=== PATIENT | male | born 1990 | race Caucasian/White ===

== ENCOUNTER 2022-07-16 19:49 | Emergency (ER) | payer OTHER, MEDICARE ==
[2022-07-16 19:59] VITALS: RESP 16; TEMP 98.8
[2022-07-16] MEDS ORDERED: SODIUM CHLORIDE 0.9% 2,000 ML IV STA (20:03)
[2022-07-16] MEDS ORDERED: FAMOTIDINE 20 MG/2 ML VIAL IV STA (20:04)
--- NOTE | 2022-07-16 20:54 | ED ---
General Adult HPI - General Chief complaint: Abdominal Pain Stated complaint: Abdominal pain Time Seen by Provider: 07/16/22 19:52 Source: patient, EMS, RN notes reviewed Mode of arrival: EMS Limitations: no limitations - History of Present Illness Initial comments: 31-year-old male presents emergency from via EMS from [place] for evaluation of nausea vomiting abdominal pain. Patient states been getting sick for last 3-4 days. He states started after started yesterday on clindamycin after dental procedure. Patient is currently in rehab for opiate abuse states that he was abusing fentanyl. Patient is currently on Subutex. Patient states does not feel like he is withdrawing does complain of epigastric discomfort, diarrhea no reports of fever. Patient's has been receiving Tigan with no relief of symptoms he states he has ALLERGY to Reglan and Compazine. - Related Data Home Medications Medication Instructions Recorded Confirmed Acetaminophen Tab [Tylenol] 650 mg PO Q4H PRN 07/16/22 07/16/22 Calcium/Magnesium/Zinc/Vitamin D 1 tab PO TID PRN 07/16/22 07/16/22 334/134/5mg Chlorpheniramine Maleate 4 mg PO Q4H PRN 07/16/22 07/16/22 [Chlor-Trimeton] Clindamycin [Cleocin] 150 mg PO TID 07/16/22 07/16/22 Hyoscyamine Sulfate [Levsin] 0.125 mg PO QID PRN 07/16/22 07/16/22 Ibuprofen [Motrin Ib] 600 mg PO Q6H PRN 07/16/22 07/16/22 Loperamide HCl [Imodium A-D] 4 mg PO QID PRN 07/16/22 07/16/22 Multivitamins, Thera [Multivitamin 1 tab PO DAILY 07/16/22 07/16/22 (formulary)] Thiamine [Vitamin B-1] 100 mg PO DAILY 07/16/22 07/16/22 Tigan 200mg/2ml Injection 200 mg IM Q6H PRN 07/16/22 07/16/22 buprenorphine HCL [Subutex] 2 - 4 mg SUBLINGUAL DAILY 07/16/22 07/16/22 buprenorphine HCL [Subutex] See Taper SUBLINGUAL DIRECTED 07/16/22 07/16/22 cloNIDine HCL [Catapres] 0.1 mg PO Q4H PRN 07/16/22 07/16/22 ondansetron HCL [Zofran] 8 mg PO Q6H PRN 07/16/22 07/16/22 traZODone HCL [Desyrel] 50 - 150 mg PO HS 07/16/22 07/16/22 Allergies Allergy/AdvReac Type Severity Reaction Status Date / Time prochlorperazine Allergy Itching Verified 07/16/22 21:28 [From Compazine] droperidol AdvReac Unknown Verified 07/16/22 21:43 metoclopramide [From Reglan] AdvReac Unknown Verified 07/16/22 21:28 Review of Systems ROS Statement: Those systems with pertinent positive or pertinent negative responses have been documented in the HPI. ROS Other: All systems not noted in ROS Statement are negative. Past Medical History Additional Past Medical History / Comment(s): depression History of Any Multi-Drug Resistant Organisms: None Reported Past Surgical History: Orthopedic Surgery Additional Past Surgical History / Comment(s): x5v colostiotomas, Past Psychological History: Depression Smoking Status: Current every day smoker Past Alcohol Use History: None Reported Past Drug Use History: Heroin, IV Drug Use General Exam Limitations: no limitations General appearance: alert, in no apparent distress Head exam: Present: atraumatic, normocephalic, normal inspection Eye exam: Present: normal appearance, PERRL, EOMI. Absent: scleral icterus, conjunctival injection, periorbital swelling ENT exam: Present: normal exam, normal oropharynx, mucous membranes moist Neck exam: Present: normal inspection, full ROM. Absent: tenderness, meningismus, lymphadenopathy Respiratory exam: Present: normal lung sounds bilaterally. Absent: respiratory distress, wheezes, rales, rhonchi, stridor Cardiovascular Exam: Present: regular rate, normal rhythm, normal heart sounds. Absent: systolic murmur, diastolic murmur, rubs, gallop, clicks GI/Abdominal exam: Present: soft, tenderness (Minimal epigastric), normal bowel sounds. Absent: distended, guarding, rebound, rigid Back exam: Absent: CVA tenderness (R), CVA tenderness (L) Neurological exam: Present: alert Skin exam: Present: warm, dry, intact, normal color. Absent: rash Course Vital Signs 07/16/22 07/16/22 07/16/22 19:50 22:02 22:45 Temperature 98.8 F Pulse Rate 65 68 64 Respiratory 16 16 16 Rate Blood Pressure 119/70 118/67 112/64 O2 Sat by Pulse 100 100 100 Oximetry - Reevaluation(s) Reevaluation #1: 07/16/22 21:44 Patient was screaming at staff demanding further medications. I did go back in the room patient is demanding opiate medications I did have a long discussion with the patient that he is currently at rehab for abuse of fentanyl and opiates. Patient is having opiate withdrawal type symptoms, possible reaction from clindamycin. Patient reports that he had symptoms from the droperidol he claims he has ALLERGIES to Reglan and Compazine patient states I can and Zofran have not been helping him patient was given a dose of Zofran IV at this point as he is only been receiving oral. Patient then and demanding benzodiazepines in which the patient requested Ativan and Librium Medical Decision Making - Medical Decision Making 32-year-old male presented for nausea vomiting. Patient is well-hydrated labs are unremarkable. This is most likely from opiate withdrawal, possible medication reaction from clindamycin. Patient will be discharged in stable condition return parameters discussed. - Lab Data Result diagrams: 07/16/22 20:30 07/16/22 20:30 Lab Results 07/16/22 07/16/22 07/16/22 Range/Units 20:30 20:30 21:45 WBC 4.9 (3.8-10.6) k/uL RBC 5.21 (4.30-5.90) m/uL Hgb 15.3 (13.0-17.5) gm/dL Hct 44.4 (39.0-53.0) % MCV 85.3 (80.0-100.0) fL MCH 29.4 (25.0-35.0) pg MCHC 34.5 (31.0-37.0) g/dL RDW 13.7 (11.5-15.5) % Plt Count 199 (150-450) k/uL MPV 8.1 Neutrophils % 67 % Lymphocytes % 16 % Monocytes % 13 % Eosinophils % 0 % Basophils % 1 % Neutrophils # 3.3 (1.3-7.7) k/uL Lymphocytes # 0.8 L (1.0-4.8) k/uL Monocytes # 0.6 (0-1.0) k/uL Eosinophils # 0.0 (0-0.7) k/uL Basophils # 0.0 (0-0.2) k/uL Sodium 144 (137-145) mmol/L Potassium 5.1 (3.5-5.1) mmol/L Chloride 109 H (98-107) mmol/L Carbon Dioxide 23 (22-30) mmol/L Anion Gap 12 mmol/L BUN 21 H (9-20) mg/dL Creatinine 0.91 (0.66-1.25) mg/dL Est GFR (CKD-EPI)AfAm >90 (>60 ml/min/1.73 sqM) Est GFR (CKD-EPI)NonAf >90 (>60 ml/min/1.73 sqM) Glucose 95 (74-99) mg/dL Calcium 9.9 (8.4-10.2) mg/dL Magnesium 2.0 (1.6-2.3) mg/dL Total Bilirubin 1.2 (0.2-1.3) mg/dL AST 47 (17-59) U/L ALT 23 (4-49) U/L Alkaline Phosphatase 60 (38-126) U/L Total Protein 8.7 H (6.3-8.2) g/dL Albumin 5.2 H (3.5-5.0) g/dL Lipase 275 (23-300) U/L Urine Color Yellow Urine Appearance Clear (Clear) Urine pH 6.0 (5.0-8.0) Ur Specific [place] 1.031 (1.001-1.035) Urine Protein 1+ H (Negative) Urine Glucose (UA) Negative (Negative) Urine Ketones 3+ H (Negative) Urine Blood Negative (Negative) Urine Nitrite Negative (Negative) Urine Bilirubin Negative (Negative) Urine Urobilinogen <2.0 (<2.0) mg/dL Ur Leukocyte Esterase Negative (Negative) Urine WBC 1 (0-5) /hpf Urine Mucus Many H (None) /hpf Disposition Clinical Impression: Nausea & vomiting, Opiate abuse, episodic, Opiate withdrawal, Medication reaction Disposition: HOME SELF-CARE Condition: Stable Instructions (If sedation given, give patient instructions): Acute Nausea and Vomiting (ED) Additional Instructions: Please return to the Emergency Department if symptoms worsen or any other concer ns. Is patient prescribed a controlled substance at d/c from ED?: No Referrals: None,Stated [Primary Care Provider] - 1-2 days Time of Disposition: 21:59
[2022-07-16 21:03] LABS: Basophils % (A) 1 %; Eosinophils % (A) 0 %; HCT 44.4 % (39.0-53.0); HGB 15.3 gm/dL (13.0-17.5); Lymphocytes # (A) 0.8 k/uL (1.0-4.8); Lymphocytes % (A) 16 %; MCH 29.4 pg (25.0-35.0); MCHC 34.5 g/dL (31.0-37.0); MCV 85.3 fL (80.0-100.0); Mean Platelet Volume 8.1; Monocytes # (A) 0.6 k/uL (0-1.0); Monocytes % (A) 13 %; Neutrophils # (A) 3.3 k/uL (1.3-7.7); Neutrophils % (A) 67 %; Platelet Count 199 k/uL (150-450); RBC 5.21 m/uL (4.30-5.90); RDW 13.7 % (11.5-15.5); WBC 4.9 k/uL (3.8-10.6)
[2022-07-16 21:21] LABS: ALT 23 U/L (4-49); AST 47 U/L (17-59); African American GFR (CKD) >90 (>60 ml/min/1.73 sqM); Albumin 5.2 g/dL (3.5-5.0); Alkaline Phosphatase 60 U/L (38-126); Anion Gap 12 mmol/L; Blood Urea Nitrogen 21 mg/dL (9-20); Calcium 9.9 mg/dL (8.4-10.2); Carbon Dioxide 23 mmol/L (22-30); Chloride 109 mmol/L (98-107); Glucose 95 mg/dL (74-99); Lipase 275 U/L (23-300); Non-African American GFR(CKD) >90 (>60 ml/min/1.73 sqM); Potassium 5.1 mmol/L (3.5-5.1); Sodium 144 mmol/L (137-145); Total Bilirubin 1.2 mg/dL (0.2-1.3); Total Protein 8.7 g/dL (6.3-8.2)
[2022-07-16] MEDS ORDERED: diphenhydrAMINE 50 MG/ML 1 ML VIAL IVP STA (21:21)
[2022-07-16] MEDS ORDERED: MAG HYDROX/AL HYDROX/SIMETH 30 ML, HYOSCYAMINE ELIXIR 10 ML, LIDOCAINE VISCOUS 2% 10 ML PO STA ×3 (21:43)
[2022-07-16] MEDS ORDERED: ONDANSETRON 4 MG/2 ML VIAL IVP STA (21:44)
[2022-07-16 22:49] VITALS: BP 112/64; PULSE 64
[2022-07-16 23:09] LABS: Appearance,Urine Clear (Clear); Bilirubin,Urine Negative (Negative); Blood,Urine Negative (Negative); Color,Urine Yellow; Glucose,Urine (UA) Negative (Negative); Ketones,Urine 3+ (Negative); Leukocyte Esterase,Urine Negative (Negative); Mucus,Urine Many /hpf; Nitrite,Urine Negative (Negative); Protein,Urine 1+ (Negative); Specific Gravity,Urine 1.031 (1.001-1.035); Urobilinogen,Urine <2.0 mg/dL (<2.0); WBC,Urine 1 /hpf (0-5)
== END 2022-07-16 22:51 | disposition home or self-care (01) ==
LOC: EC 19:49
DX: R11.2 Nausea with vomiting, unspecified (principal); F11.10 Opioid abuse, uncomplicated; T50.905A Adverse effect of unspecified drugs, medicaments and biological substances, initial encounter; F32.A Depression, unspecified; F17.200 Nicotine dependence, unspecified, uncomplicated; Z88.8 Allergy status to other drugs, medicaments and biological substances
CPT/HCPCS: 36415; 80053; 83690; 83735; 85025; 81001; 99284; 96374; 96375 ×3; 96361 ×2; J1200; J2405; J1790

== ENCOUNTER 2022-07-29 21:09 | Emergency (ER) | payer OTHER, MEDICARE ==
[2022-07-29 21:33] VITALS: BP 117/79; PULSE 89; RESP 16; TEMP 97.8
--- NOTE | 2022-07-29 22:10 | ED ---
Abdominal Pain HPI - General Source: patient, RN notes reviewed Mode of arrival: ambulatory Limitations: no limitations <Fany Lou - Last Filed: 07/29/22 22:06> - General Source: patient, RN notes reviewed Mode of arrival: ambulatory Limitations: no limitations - History of Present Illness MD Complaint: abdominal pain <Gilda Aguillon - Last Filed: 07/30/22 04:45> - General Chief Complaint: Abdominal Pain Stated Complaint: appendix Time Seen by Provider: 07/29/22 22:06 - History of Present Illness Initial Comments: Patient is a 31-year-old male who presents to the emergency department with a chief complaint abdominal pain. Patient presents from [place], has been there for a couple weeks for opioid use. Reports abdominal pain in his umbilical region around 3:00 pm today which over time has radiated to his right lower abdomen and right side. Reports associated chills. No fever, nausea, vomiting, diarrhea, burning with urination, trouble urinating, blood in the urine. Denies history of kidney stone and abdominal surgery. Denies recent alcohol and drug use. (Fany Lou) - Related Data Home Medications Medication Instructions Recorded Confirmed Acetaminophen Tab [Tylenol] 650 mg PO Q4H PRN 07/16/22 07/16/22 Calcium/Magnesium/Zinc/Vitamin D 1 tab PO TID PRN 07/16/22 07/16/22 334/134/5mg Chlorpheniramine Maleate 4 mg PO Q4H PRN 07/16/22 07/16/22 [Chlor-Trimeton] Clindamycin [Cleocin] 150 mg PO TID 07/16/22 07/16/22 Hyoscyamine Sulfate [Levsin] 0.125 mg PO QID PRN 07/16/22 07/16/22 Ibuprofen [Motrin Ib] 600 mg PO Q6H PRN 07/16/22 07/16/22 Loperamide HCl [Imodium A-D] 4 mg PO QID PRN 07/16/22 07/16/22 Multivitamins, Thera [Multivitamin 1 tab PO DAILY 07/16/22 07/16/22 (formulary)] Thiamine [Vitamin B-1] 100 mg PO DAILY 07/16/22 07/16/22 Tigan 200mg/2ml Injection 200 mg IM Q6H PRN 07/16/22 07/16/22 buprenorphine HCL [Subutex] 2 - 4 mg SUBLINGUAL DAILY 07/16/22 07/16/22 buprenorphine HCL [Subutex] See Taper SUBLINGUAL DIRECTED 07/16/22 07/16/22 cloNIDine HCL [Catapres] 0.1 mg PO Q4H PRN 07/16/22 07/16/22 ondansetron HCL [Zofran] 8 mg PO Q6H PRN 07/16/22 07/16/22 traZODone HCL [Desyrel] 50 - 150 mg PO HS 07/16/22 07/16/22 Allergies Allergy/AdvReac Type Severity Reaction Status Date / Time prochlorperazine Allergy Itching Verified 07/16/22 21:28 [From Compazine] droperidol AdvReac Unknown Verified 07/16/22 21:43 metoclopramide [From Reglan] AdvReac Unknown Verified 07/16/22 21:28 Review of Systems ROS Other: All systems not noted in ROS Statement are negative. <Fany Lou - Last Filed: 07/29/22 22:06> ROS Other: All systems not noted in ROS Statement are negative. <Gilda Aguillon - Last Filed: 07/30/22 04:45> ROS Statement: Those systems with pertinent positive or pertinent negative responses have been documented in the HPI. Past Medical History Additional Past Medical History / Comment(s): depression History of Any Multi-Drug Resistant Organisms: None Reported Past Surgical History: Orthopedic Surgery Additional Past Surgical History / Comment(s): x5v colostiotomas, Past Psychological History: Depression Smoking Status: Current every day smoker Past Alcohol Use History: None Reported Past Drug Use History: Heroin, IV Drug Use <Fany Lou - Last Filed: 07/29/22 22:06> General Exam Limitations: no limitations <Fany Lou - Last Filed: 07/29/22 22:06> Limitations: no limitations General appearance: alert, in no apparent distress Head exam: Present: atraumatic, normocephalic, normal inspection Respiratory exam: Present: normal lung sounds bilaterally. Absent: respiratory distress, wheezes, rales, rhonchi, stridor Cardiovascular Exam: Present: regular rate, normal rhythm, normal heart sounds. Absent: systolic murmur, diastolic murmur, rubs, gallop, clicks GI/Abdominal exam: Present: soft, tenderness (RLQ and periumbilical), normal bowel sounds. Absent: distended Neurological exam: Present: alert, oriented X3, CN II-XII intact Psychiatric exam: Present: normal affect, normal mood Skin exam: Present: warm, dry, intact, normal color. Absent: rash <Gilda Aguillon - Last Filed: 07/30/22 04:45> Course Vital Signs 07/29/22 21:30 Temperature 97.8 F Pulse Rate 89 Respiratory 16 Rate Blood Pressure 117/79 O2 Sat by Pulse 99 Oximetry Medical Decision Making - Lab Data Result diagrams: 07/30/22 02:21 07/30/22 02:21 - Radiology Data Radiology results: report reviewed, image reviewed <Gilda Aguillon - Last Filed: 07/30/22 04:45> - Medical Decision Making This is a 31-year-old male who presents to the emergency department for abdomi nal pain. Was pt. sent in by a medical professional or institution? @ -[place] Did you speak to anyone other than the patient for history? @ -No Did you review nursing and triage notes? @ -Agree, accurate with regards to the patient's symptoms. Were old charts reviewed? @ -No Differential Diagnosis? @ -Differential Abdominal Pain Men: Appendicitis, cholecystitis, diverticulosis, ischemic bowel, pancreatitis, hepatitis, UTI, gastroenteritis, AAA, incarcerated hernia, bowel obstruction, constipation, inflammatory bowel, hepatitis, peptic ulcer disease, splenic infarction, perforated viscus, testicular torsion, this is not meant to be an all-inclusive list CT interpreted by me (1pt min.)? @ -My interpretation of the computed tomography scan of the abdomen and pelvis identifies no dilation of the appendix or evidence of free air. What testing was considered but not performed? (CT, X-rays, U/S, labs)? Why? @ -None What meds were considered but not given? Why? @ -I offered the patient Toradol, however he declined the need for pain medication at this time. Did you discuss the management of the patient with other professionals? @ -No Did you reconcile home meds? @ -No Was smoking cessation discussed for >3mins.? @ -No Was critical care preformed (if so, how long)? @ -No Were there social determinants of health that impacted care today? How? (Homelessness, low income, unemployed, alcoholism, drug addiction, transportation, low edu. Level, literacy, decrease access to med. care, penitentiary, rehab)? @ -Drug addiction Was there de-escalation of care discussed even if they declined? (Discuss DNR or withdrawal of care, Hospice)? @ -No What co-morbidities impacted this encounter? (DM, HTN, Smoking, COPD, CAD, Cancer, CVA, Hep., AIDS, mental health diagnosis, sleep apnea, morbid obesity)? @ -None Was patient admitted / discharged? @ -Discharged. Lab work obtained revealing minor leukocytosis. Computed tomography scan of the abdomen and pelvis obtained as well, my interpretation is listed above and the radiologist also makes note of focal colitis. Findings discussed the patient, in that this is often something that will resolve on its own without any specific treatment. Advised ibuprofen and Tylenol for pain relief in the meantime. I suggested he avoid any extra heavy, greasy, or spicy foods for the next few days to allow his bowels time to rest. Prior to d ischarge, he requested gonorrhea and chlamydia testing. He states that he has been sexually active with the same partner for the last year and half, and he denies any urethral discharge, but would like to have this checked regardless due to his abdominal pain. Gonorrhea and chlamydia testing were ordered with results pending. Drug Therapy requiring intensive monitoring for toxicity (Heparin, Nitro, Insulin, Cardizem)? @ -None Were any procedures done? @ -None Diagnosis/symptom? @ -Right lower quadrant abdominal pain Acute, or Chronic, or Acute on Chronic? @ -Acute Uncomplicated (without systemic symptoms) or Complicated (systemic symptoms)? @ -Uncomplicated Side effects of treatment? @ -None Exacerbation, Progression, or Severe Exacerbation] @ -Not applicable Poses a threat to life or bodily function? @ -The severity of the patient's symptoms will dictate whether or not this will impact bodily function. Return precautions reviewed in depth, the patient is instructed to return to the emergency department with any new, worsening, or concerning symptoms. Patient verbalized understanding. This case was discussed in detail with the attending ED physician. Presentation, findings, and treatment plan discussed in detail as well. (Gilda Aguillon) - Lab Data Lab Results 07/30/22 07/30/22 07/30/22 Range/Units 02:21 02:21 02:21 WBC 12.5 H (3.8-10.6) k/uL RBC 5.04 (4.30-5.90) m/uL Hgb 15.2 (13.0-17.5) gm/dL Hct 44.0 (39.0-53.0) % MCV 87.3 (80.0-100.0) fL MCH 30.1 (25.0-35.0) pg MCHC 34.4 (31.0-37.0) g/dL RDW 14.2 (11.5-15.5) % Plt Count 179 (150-450) k/uL MPV 8.1 Neutrophils % 75 % Lymphocytes % 16 % Monocytes % 7 % Eosinophils % 1 % Basophils % 1 % Neutrophils # 9.4 H (1.3-7.7) k/uL Lymphocytes # 2.0 (1.0-4.8) k/uL Monocytes # 0.8 (0-1.0) k/uL Eosinophils # 0.1 (0-0.7) k/uL Basophils # 0.1 (0-0.2) k/uL Sodium 139 (137-145) mmol/L Potassium 4.0 (3.5-5.1) mmol/L Chloride 108 H (98-107) mmol/L Carbon Dioxide 25 (22-30) mmol/L Anion Gap 6 mmol/L BUN 23 H (9-20) mg/dL Creatinine 0.82 (0.66-1.25) mg/dL Est GFR (CKD-EPI)AfAm >90 (>60 ml/min/1.73 sqM) Est GFR (CKD-EPI)NonAf >90 (>60 ml/min/1.73 sqM) Glucose 104 H (74-99) mg/dL Plasma Lactic Acid Anibal 0.8 (0.7-2.0) mmol/L Calcium 9.3 (8.4-10.2) mg/dL Total Bilirubin 0.8 (0.2-1.3) mg/dL AST 28 (17-59) U/L ALT 30 (4-49) U/L Alkaline Phosphatase 62 (38-126) U/L Total Protein 7.3 (6.3-8.2) g/dL Albumin 4.5 (3.5-5.0) g/dL Lipase 431 H (23-300) U/L Disposition <Fany Lou - Last Filed: 07/29/22 22:06> Is patient prescribed a controlled substance at d/c from ED?: No <Gilda Aguillon - Last Filed: 07/30/22 04:45> Clinical Impression: Colitis Disposition: HOME SELF-CARE Instructions (If sedation given, give patient instructions): Colitis (ED) Additional Instructions: Return to the emergency department with any new, worsening, or concerning symptoms. Alternate with ibuprofen and Tylenol as needed for pain relief. Avoid any extra greasy, spicy, or heavy foods for the next couple of days to allow yourself time to recover. Follow up with your primary care provider in 1- 2 days. Referrals: None,Stated [Primary Care Provider] - 1-2 days
[2022-07-30] MEDS ORDERED: SODIUM CHLORIDE 0.9% 1,000 ML IV STA (01:26)
[2022-07-30 02:28] LABS: Basophils # (A) 0.1 k/uL (0-0.2); Basophils % (A) 1 %; Eosinophils # (A) 0.1 k/uL (0-0.7); Eosinophils % (A) 1 %; HGB 15.2 gm/dL (13.0-17.5); Lymphocytes % (A) 16 %; MCH 30.1 pg (25.0-35.0); MCHC 34.4 g/dL (31.0-37.0); MCV 87.3 fL (80.0-100.0); Mean Platelet Volume 8.1; Monocytes # (A) 0.8 k/uL (0-1.0); Monocytes % (A) 7 %; Neutrophils # (A) 9.4 k/uL (1.3-7.7); Neutrophils % (A) 75 %; Platelet Count 179 k/uL (150-450); RBC 5.04 m/uL (4.30-5.90); RDW 14.2 % (11.5-15.5); WBC 12.5 k/uL (3.8-10.6)
--- NOTE | 2022-07-30 02:35 | CT ---
EXAMINATION TYPE: CT abdomen pelvis w con DATE OF EXAM: 07/30/2022 COMPARISON: None HISTORY: RLQ PAIN CT DLP: 869.4 mGycm Automated exposure control for dose reduction was used. CONTRAST: Performed with IV Contrast, patient injected with 100 mL of Isovue 300. Images obtained from the diaphragm to the floor the pelvis with the IV contrast. Liver spleen and stomach pancreas and gallbladder appear intact. The bile ducts are not dilated. There is no adrenal mass. Kidneys show satisfactory contrast opacification. No hydronephrosis. Delaye d images show normal renal excretion. Appendix is posterior and appears normal. The bladder distends smoothly. No inguinal hernia. No free fluid in the pelvis. No pelvic mass. There is no mesenteric edema. No ascites or free air. No sign of a bowel obstruction. There is mild w all thickening of the rectum. There is retained fecal material in the rectum. The lumbar vertebrae have normal alignment. Posterior elements are intact. Bony pelvis is intact. The hip joints are intact. Sacroiliac joints are intact. IMPRESSION: There is minimal wall thickening of the lower rectum that could be some focal colitis. Otherwise nega tive exam. Normal appendix.
[2022-07-30 03:02] LABS: ALT 30 U/L (4-49); AST 28 U/L (17-59); African American GFR (CKD) >90 (>60 ml/min/1.73 sqM); Albumin 4.5 g/dL (3.5-5.0); Alkaline Phosphatase 62 U/L (38-126); Anion Gap 6 mmol/L; Blood Urea Nitrogen 23 mg/dL (9-20); Calcium 9.3 mg/dL (8.4-10.2); Carbon Dioxide 25 mmol/L (22-30); Chloride 108 mmol/L (98-107); Glucose 104 mg/dL (74-99); Lipase 431 U/L (23-300); Non-African American GFR(CKD) >90 (>60 ml/min/1.73 sqM); Sodium 139 mmol/L (137-145); Total Bilirubin 0.8 mg/dL (0.2-1.3); Total Protein 7.3 g/dL (6.3-8.2)
[2022-07-30 04:44] LABS: Appearance,Urine Clear (Clear); Bilirubin,Urine Negative (Negative); Blood,Urine Negative (Negative); Color,Urine Light Yellow; Glucose,Urine (UA) Negative (Negative); Ketones,Urine Negative (Negative); Leukocyte Esterase,Urine Negative (Negative); Nitrite,Urine Negative (Negative); Protein,Urine Trace (Negative); Urobilinogen,Urine <2.0 mg/dL (<2.0)
[2022-07-30 05:21] LABS: Specific Gravity,Urine >1.050 (1.001-1.035)
[2022-08-01 10:41] LABS: Chlamydia trachomatis rRNA Not detected (Not detected); Neisseria gonorrhoeae rRNA Not detected (Not detected)
== END 2022-07-30 04:56 | disposition home or self-care (01) ==
LOC: EC 21:09
DX: K52.9 Noninfective gastroenteritis and colitis, unspecified (principal); F32.A Depression, unspecified; F17.200 Nicotine dependence, unspecified, uncomplicated; F11.90 Opioid use, unspecified, uncomplicated; Z88.8 Allergy status to other drugs, medicaments and biological substances
CPT/HCPCS: 36415; 80053; 87491; 83605; 83690; 85025; 81003; 74177; 99284; 96360; 96361; Q9967

== ENCOUNTER 2022-11-07 10:12 | Emergency (ER) | payer OTHER, MEDICARE ==
[2022-11-07] MEDS ORDERED: SODIUM CHLORIDE 0.9% 2,000 ML IV STA (11:34)
[2022-11-07] MEDS ORDERED: ONDANSETRON 4 MG/2 ML VIAL IVP STA (11:34)
[2022-11-07] MEDS ORDERED: FAMOTIDINE 20 MG/2 ML VIAL IV STA (11:34)
[2022-11-07 12:36] LABS: Basophils % (A) 0 %; Eosinophils % (A) 0 %; HGB 16.7 gm/dL (13.0-17.5); Lymphocytes # (A) 1.8 k/uL (1.0-4.8); Lymphocytes % (A) 16 %; MCH 29.9 pg (25.0-35.0); MCHC 34.8 g/dL (31.0-37.0); MCV 86.1 fL (80.0-100.0); Mean Platelet Volume 7.2; Monocytes # (A) 0.6 k/uL (0-1.0); Monocytes % (A) 6 %; Neutrophils # (A) 8.7 k/uL (1.3-7.7); Neutrophils % (A) 77 %; Platelet Count 264 k/uL (150-450); RBC 5.57 m/uL (4.30-5.90); RDW 12.8 % (11.5-15.5); WBC 11.3 k/uL (3.8-10.6)
[2022-11-07 12:38] LABS: ALT 21 U/L (4-49); AST 25 U/L (17-59); African American GFR (CKD) >90 (>60 ml/min/1.73 sqM); Albumin 5.1 g/dL (3.5-5.0); Alkaline Phosphatase 76 U/L (38-126); Anion Gap 14 mmol/L; Blood Urea Nitrogen 26 mg/dL (9-20); Calcium 10.5 mg/dL (8.4-10.2); Carbon Dioxide 26 mmol/L (22-30); Chloride 100 mmol/L (98-107); Glucose 119 mg/dL (74-99); Lipase 311 U/L (23-300); Non-African American GFR(CKD) >90 (>60 ml/min/1.73 sqM); Potassium 4.1 mmol/L (3.5-5.1); Sodium 140 mmol/L (137-145); Total Bilirubin 0.7 mg/dL (0.2-1.3); Total Protein 8.8 g/dL (6.3-8.2)
[2022-11-07 12:56] VITALS: RESP 16
[2022-11-07 14:17] LABS: Appearance,Urine Clear (Clear); Bilirubin,Urine Negative (Negative); Blood,Urine Negative (Negative); Color,Urine Yellow; Glucose,Urine (UA) Negative (Negative); Ketones,Urine 2+ (Negative); Leukocyte Esterase,Urine Negative (Negative); Mucus,Urine Few /hpf; Nitrite,Urine Negative (Negative); PH, Urine 6.5 (5.0-8.0); Protein,Urine 1+ (Negative); RBC,Urine <1 /hpf (0-5); Specific Gravity,Urine 1.035 (1.001-1.035); Squamous Epithelial Cell,Urine <1 /hpf (0-4); WBC,Urine 1 /hpf (0-5)
--- NOTE | 2022-11-07 14:32 | ED ---
Nausea/Vomiting/Diarrhea HPI - General Chief complaint: Nausea/Vomiting/Diarrhea Stated complaint: vomiting, flank pain Time Seen by Provider: 11/07/22 11:09 Source: patient, RN notes reviewed Mode of arrival: ambulatory Limitations: no limitations - History of Present Illness Initial comments: 32-year-old male presents emergency Department chief complaint of nausea vomiting mild abdominal pain. Patient states been having vomiting for last 4 days. Patient was sent in from [place]. Patient is currently therefore opiate withdrawal, opiate abuse. Patient states she's been there for 4 days. He states is mild epigastric pain. Patient states he used to snort opiates he denies IV drug use. Patient denies any back pain. No history kidney stones. - Related Data Home Medications Medication Instructions Recorded Confirmed Acetaminophen Tab [Tylenol] 650 mg PO Q4H PRN 07/16/22 11/07/22 Calcium/Magnesium/Zinc/Vitamin D 1 tab PO TID PRN 07/16/22 11/07/22 334/134/5mg Chlorpheniramine Maleate 4 mg PO Q4H PRN 07/16/22 11/07/22 [Chlor-Trimeton] Hyoscyamine Sulfate [Levsin] 0.125 mg PO QID PRN 07/16/22 11/07/22 Ibuprofen [Motrin Ib] 600 mg PO Q6H PRN 07/16/22 11/07/22 Loperamide HCl [Imodium A-D] 4 mg PO QID PRN 07/16/22 11/07/22 Multivitamins, Thera [Multivitamin 1 tab PO DAILY 07/16/22 11/07/22 (formulary)] Thiamine [Vitamin B-1] 100 mg PO DAILY 07/16/22 11/07/22 buprenorphine HCL [Subutex] 2 - 4 mg SUBLINGUAL DIRECTED 07/16/22 11/07/22 cloNIDine HCL [Catapres] 0.1 mg PO Q4H PRN 07/16/22 11/07/22 ondansetron HCL [Zofran] 8 mg PO Q6H PRN 07/16/22 11/07/22 traZODone HCL [Desyrel] 50 - 150 mg PO HS PRN 07/16/22 11/07/22 Docusate [Colace] 100 mg PO BID PRN 11/07/22 11/07/22 Mag Hydrox/Aluminum Hyd/Simeth 30 ml PO Q4H PRN 11/07/22 11/07/22 [Mylanta Maximum Strength Liq] Magnesium Hydroxide [Milk of 2,400 mg PO BID PRN 11/07/22 11/07/22 Magnesia] guaiFENesin [guaiFENesin Oral 200 mg PO Q4H PRN 11/07/22 11/07/22 Solution] Previous Rx's Medication Instructions Recorded Ondansetron Odt [Zofran Odt] 4 mg PO Q8HR PRN #10 tab 11/07/22 Allergies Allergy/AdvReac Type Severity Reaction Status Date / Time prochlorperazine Allergy Itching Verified 11/07/22 12:46 [From Compazine] droperidol AdvReac Unknown Verified 11/07/22 12:46 metoclopramide [From Reglan] AdvReac Unknown Verified 11/07/22 12:46 Review of Systems ROS Statement: Those systems with pertinent positive or pertinent negative responses have been documented in the HPI. ROS Other: All systems not noted in ROS Statement are negative. Past Medical History Additional Past Medical History / Comment(s): depression History of Any Multi-Drug Resistant Organisms: None Reported Past Surgical History: Orthopedic Surgery Additional Past Surgical History / Comment(s): x5v colostiotomas, Past Psychological History: Depression Smoking Status: Current every day smoker Past Alcohol Use History: None Reported Past Drug Use History: Heroin, IV Drug Use General Exam Limitations: no limitations General appearance: alert, in no apparent distress Head exam: Present: atraumatic, normocephalic, normal inspection Eye exam: Present: normal appearance, PERRL, EOMI. Absent: scleral icterus, conjunctival injection, periorbital swelling ENT exam: Present: normal exam, mucous membranes moist Neck exam: Present: normal inspection, full ROM. Absent: tenderness, meningismus, lymphadenopathy Respiratory exam: Present: normal lung sounds bilaterally. Absent: respiratory distress, wheezes, rales, rhonchi, stridor Cardiovascular Exam: Present: regular rate, normal rhythm, normal heart sounds. Absent: systolic murmur, diastolic murmur, rubs, gallop, clicks GI/Abdominal exam: Present: soft, tenderness (Minimal diffuse), normal bowel sounds. Absent: distended, guarding, rebound, rigid Back exam: Absent: CVA tenderness (R), CVA tenderness (L) Course Vital Signs 11/07/22 11/07/22 11/07/22 10:37 11:16 11:30 Temperature 97.4 F L Pulse Rate 56 L 68 Respiratory 20 16 17 Rate Blood Pressure 163/76 117/95 O2 Sat by Pulse 99 Oximetry 11/07/22 11/07/22 12:00 12:30 Temperature Pulse Rate 56 L 59 L Respiratory 12 16 Rate Blood Pressure 121/74 O2 Sat by Pulse Oximetry Medical Decision Making - Medical Decision Making Was pt. sent in by a medical professional or institution (, PA, ACCOUNTS PAYABLE OR RECEIVABLE CLERK, urgent care, hospital, or group home...) When possible be specific @ -No Did you speak to anyone other than the patient for history (EMS, parent, family, police, friend...)? What history was obtained from this source @ -No Did you review nursing and triage notes (agree or disagree)? Why? @ -I reviewed and agree with nursing and triage notes Were old charts reviewed (outside hosp., previous admission, EMS record, old EKG, old radiological studies, urgent care reports/EKG's, group home records)? Report findings @ -Reviewed prior CT showing no evidence of kidney stone. Differential Diagnosis (chest pain, altered mental status, abdominal pain women, abdominal pain men, vaginal bleeding, weakness, fever, dyspnea, syncope, headache, dizziness, GI bleed, back pain, seizure, CVA, palpatations, mental health, musculoskeletal)? @ -Differential Abdominal Pain Men: Appendicitis, cholecystitis, diverticulosis, ischemic bowel, pancreatitis, hepatitis, UTI, gastroenteritis, AAA, incarcerated hernia, bowel obstruction, constipation, inflammatory bowel, hepatitis, peptic ulcer disease, splenic infarction, perforated viscus, testicular torsion, this is not meant to be an all-inclusive listcable EKG interpreted by me (3pts min.). @ -None X-rays interpreted by me (1pt min.). @ -None done CT interpreted by me (1pt min.). @ -None done U/S interpreted by me (1pt. min.). @ -None done What testing was considered but not performed or refused? (CT, X-rays, U/S, labs)? Why? @ -None What meds were considered but not given or refused? Why? @ -None Did you discuss the management of the patient with other professionals (professionals i.e. , PA, ACCOUNTS PAYABLE OR RECEIVABLE CLERK, lab, RT, psych nurse, home health care social worker, developer analyst, teacher, personnel officer, lead case manager)? Give summary @ -No Was smoking cessation discussed for >3mins.? @ -No Was critical care preformed (if so, how long)? @ -No Were there social determinants of health that impacted care today? How? (Homelessness, low income, unemployed, alcoholism, drug addiction, transportation, low edu. Level, literacy, decrease access to med. care, intermediate, rehab)? @ -No Was there de-escalation of care discussed even if they declined (Discuss DNR or withdrawal of care, Hospice)? DNR status @ -No What co-morbidities impacted this encounter? (DM, HTN, Smoking, COPD, CAD, C ancer, CVA, ARF, Chemo, Hep., AIDS, mental health diagnosis, sleep apnea, morbid obesity)? @ -Drug abuse Was patient admitted / discharged? Hospital course, mention meds given and route, prescriptions, significant lab abnormalities, going to OR and other pertinent info. @ -Discharged patient is improved after IV fluids and antiemetics labs are essentially unremarkable patient discharged in stable condition. Undiagnosed new problem with uncertain prognosis? @ -No Drug Therapy requiring intensive monitoring for toxicity (Heparin, Nitro, Insulin, Cardizem)? @ -No Were any procedures done? @ -No Diagnosis/symptom? @ -Nausea vomiting Acute, or Chronic, or Acute on Chronic? @ -Acute Uncomplicated (without systemic symptoms) or Complicated (systemic symptoms)? @ -Uncomplicated. Side effects of treatment? @ -No Exacerbation, Progression, or Severe Exacerbation? @ -No Poses a threat to life or bodily function? How? (Chest pain, [place], [place], pneumonia, PE, COPD, DKA, ARF, appy, cholecystitis, CVA, Diverticulitis, Homicidal, Suicidal, threat to staff... and all critical care pts) @ -No - Lab Data Result diagrams: 11/07/22 11:55 11/07/22 11:55 Lab Results 11/07/22 11/07/22 11/07/22 Range/Units 11:55 11:55 11:55 WBC 11.3 H (3.8-10.6) k/uL RBC 5.57 (4.30-5.90) m/uL Hgb 16.7 (13.0-17.5) gm/dL Hct 48.0 (39.0-53.0) % MCV 86.1 (80.0-100.0) fL MCH 29.9 (25.0-35.0) pg MCHC 34.8 (31.0-37.0) g/dL RDW 12.8 (11.5-15.5) % Plt Count 264 (150-450) k/uL MPV 7.2 Neutrophils % 77 % Lymphocytes % 16 % Monocytes % 6 % Eosinophils % 0 % Basophils % 0 % Neutrophils # 8.7 H (1.3-7.7) k/uL Lymphocytes # 1.8 (1.0-4.8) k/uL Monocytes # 0.6 (0-1.0) k/uL Eosinophils # 0.0 (0-0.7) k/uL Basophils # 0.0 (0-0.2) k/uL Sodium 140 (137-145) mmol/L Potassium 4.1 (3.5-5.1) mmol/L Chloride 100 (98-107) mmol/L Carbon Dioxide 26 (22-30) mmol/L Anion Gap 14 mmol/L BUN 26 H (9-20) mg/dL Creatinine 0.88 (0.66-1.25) mg/dL Est GFR (CKD-EPI)AfAm >90 (>60 ml/min/1.73 sqM) Est GFR (CKD-EPI)NonAf >90 (>60 ml/min/1.73 sqM) Glucose 119 H (74-99) mg/dL Calcium 10.5 H (8.4-10.2) mg/dL Total Bilirubin 0.7 (0.2-1.3) mg/dL AST 25 (17-59) U/L ALT 21 (4-49) U/L Alkaline Phosphatase 76 (38-126) U/L Total Protein 8.8 H (6.3-8.2) g/dL Albumin 5.1 H (3.5-5.0) g/dL Lipase 311 H (23-300) U/L Urine Color Yellow Urine Appearance Clear (Clear) Urine pH 6.5 (5.0-8.0) Ur Specific [place] 1.035 (1.001-1.035) Urine Protein 1+ H (Negative) Urine Glucose (UA) Negative (Negative) Urine Ketones 2+ H (Negative) Urine Blood Negative (Negative) Urine Nitrite Negative (Negative) Urine Bilirubin Negative (Negative) Urine Urobilinogen 3.0 (<2.0) mg/dL Ur Leukocyte Esterase Negative (Negative) Urine RBC <1 (0-5) /hpf Urine WBC 1 (0-5) /hpf Ur Squamous Epith Cells <1 (0-4) /hpf Urine Mucus Few H (None) /hpf Disposition Clinical Impression: Nausea & vomiting Disposition: HOME SELF-CARE Condition: Stable Instructions (If sedation given, give patient instructions): Acute Nausea and Vomiting (ED) Additional Instructions: Please return to the Emergency Department if symptoms worsen or any other concerns. Prescriptions: Ondansetron Odt [Zofran Odt] 4 mg PO Q8HR PRN #10 tab PRN Reason: Nausea Is patient prescribed a controlled substance at d/c from ED?: No Referrals: None,Stated [Primary Care Provider] - 1-2 days Time of Disposition: 14:32
[2022-11-07 14:55] VITALS: BP 127/84; PULSE 57; TEMP 98.6
== END 2022-11-07 14:56 | disposition home or self-care (01) ==
LOC: EC 10:12
DX: R11.2 Nausea with vomiting, unspecified (principal); R10.84 Generalized abdominal pain; F32.A Depression, unspecified; F17.200 Nicotine dependence, unspecified, uncomplicated; F11.90 Opioid use, unspecified, uncomplicated; F15.90 Other stimulant use, unspecified, uncomplicated; Z79.899 Other long term (current) drug therapy; Z88.8 Allergy status to other drugs, medicaments and biological substances
CPT/HCPCS: 36415; 80053; 83690; 85025; 81001; 99285; 96374; 96375; 96361 ×2; J2405